=== PATIENT | female | born 1950 | race Caucasian/White ===

== ENCOUNTER 2019-11-03 20:44 | Inpatient (IN) | payer MEDICARE, OTHER ==
[~2019-11-03] VITALS: Ht 172.7 cm; Wt 92.4 kg
--- NOTE | 2019-11-03 20:57 | ED Abdominal Pain ---
General Chief Complaint: Abdominal/GI Problems Stated Complaint: VOMITING,ABD PAIN Nursing Triage Note: PT TO ROOM FS01 VIA W/C WITH C/O ABD PAIN N/V STARTING AT NOON. PT REPORTS PAIN IN UPPER ABD RADIATING TO BACK. Sepsis Screen: No Definite Risk History of Present Illness Date Seen by Provider: November 03, 2019 Time Seen by Provider: 20:57 Initial Comments 69-year-old female presents with upper abdominal pain more epigastric then right or left. She reports that radiates over into her upper back. This started around noon with some pain followed shortly by some nausea vomiting. She describes it as a crampy pain. Patient states she's had a normal bowel movement this morning. She denies any fevers, chills, cough, shortness of breath. Allergies and Home Medications Allergies Coded Allergies: acetaminophen (Unverified Allergy, Unknown, 11/03/19) meperidine (Unverified Allergy, Unknown, 11/03/19) oxycodone (Unverified Allergy, Unknown, 11/03/19) Patient Home Medication List Home Medication List Reviewed: Yes Review of Systems Review of Systems Constitutional: No chills, No fever Respiratory: Denies Cough, Denies Shortness of Air Cardiovascular: Denies Chest Pain, Denies Irregular Heart Rate Gastrointestinal: Abdominal Pain; Denies Constipated, Denies Diarrhea; Nausea, Vomiting Genitourinary: No Symptoms Reported Musculoskeletal: no symptoms reported Skin: no symptoms reported Psychiatric/Neurological: No Symptoms Reported Past Erwauyp-Qmmrzv-Gvdgeq Hx Patient Social History Recent Foreign Travel: No Contact w/Someone Who Travel: No Recent Infectious Disease Expo: No Physical Exam Vital Signs Vital Signs - First Documented 11/03/19 20:51 Temp 35.5 Pulse 79 Resp 21 B/P (MAP) 138/80 (99) O2 Delivery Room Air Capillary Refill : Less Than 3 Seconds Height/Weight/BMI Height: '" Weight: lbs. oz. 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, no motor/sensory deficits, alert, oriented x 3 Skin: normal color Focused Exam Lactate Level 11/03/19 21:00: Lactic Acid Level 3.62*H Lactic Acid Level Laboratory Tests Test 11/03/19 21:00 Lactic Acid Level 3.62 MMOL/L (0.50-2.00) *H Progress/Results/Core Measures Results/Orders Lab Results Laboratory Tests Test 11/03/19 20:55 11/03/19 21:00 Range/Units White Blood Count 16.2 H 4.3-11.0 10^3/uL Red Blood Count 5.28 4.35-5.85 10^6/uL Hemoglobin 14.5 11.5-16.0 G/DL Hematocrit 45 35-52 % Mean Corpuscular Volume 85 80-99 FL Mean Corpuscular Hemoglobin 27 25-34 PG Mean Corpuscular Hemoglobin Concent 32 32-36 G/DL Red Cell Distribution Width 15.1 H 10.0-14.5 % Platelet Count 402 H 130-400 10^3/uL Mean Platelet Volume 9.5 7.4-10.4 FL Neutrophils (%) (Auto) 83 H 42-75 % Lymphocytes (%) (Auto) 10 L 12-44 % Monocytes (%) (Auto) 6 0-12 % Eosinophils (%) (Auto) 1 0-10 % Basophils (%) (Auto) 0 0-10 % Neutrophils # (Auto) 13.4 H 1.8-7.8 X 10^3 Lymphocytes # (Auto) 1.7 1.0-4.0 X 10^3 Monocytes # (Auto) 0.9 0.0-1.0 X 10^3 Eosinophils # (Auto) 0.1 0.0-0.3 10^3/uL Basophils # (Auto) 0.0 0.0-0.1 10^3/uL Neutrophils % (Manual) 80 % Lymphocytes % (Manual) 11 % Monocytes % (Manual) 7 % Eosinophils % (Manual) 1 % Basophils % (Manual) 0 % Band Neutrophils 1 % Blood Morphology Comment NORMAL Sodium Level 140 135-145 MMOL/L Potassium Level 4.2 3.6-5.0 MMOL/L Chloride Level 96 L 98-107 MMOL/L Carbon Dioxide Level 25 21-32 MMOL/L Anion Gap 19 H 5-14 MMOL/L Blood Urea Nitrogen 16 7-18 MG/DL Creatinine 1.02 0.60-1.30 MG/DL Estimat Glomerular Filtration Rate 54 BUN/Creatinine Ratio 16 Glucose Level 126 H 70-105 MG/DL Calcium Level 10.1 8.5-10.1 MG/DL Corrected Calcium 9.9 8.5-10.1 MG/DL Total Bilirubin 0.6 0.1-1.0 MG/DL Aspartate Amino Transf (AST/SGOT) 33 5-34 U/L Alanine Aminotransferase (ALT/SGPT) 26 0-55 U/L Alkaline Phosphatase 102 40-136 U/L Total Protein 7.1 6.4-8.2 GM/DL Albumin 4.3 3.2-4.5 GM/DL Lipase 47 8-78 U/L Lactic Acid Level 3.62 *H 0.50-2.00 MMOL/L My Orders Orders - ISIDRO PATEL DO Acute Abd Series (11/03/19 20:57) Cbc With Automated Diff (11/03/19 20:57) Comprehensive Metabolic Panel (11/03/19 20:57) Lactic Acid Analyzer (11/03/19 20:57) Lipase (11/03/19 20:57) Ua Culture If Indicated (11/03/19 20:57) Ondansetron Injection (Zofran Injectio (11/03/19 21:00) Famotidine Injection (Pepcid Injection) (11/03/19 21:00) Ed Iv/Invasive Line Start (11/03/19 21:03) Ns Iv 1000 Ml (Sodium Chloride 0.9%) (11/03/19 21:03) Manual Differential (11/03/19 20:55) Ct Abdomen/Pelvis W (11/03/19 21:30) Iohexol Injection (Omnipaque 350 Mg/Ml 1 (11/03/19 21:45) Received Contrast (Hold Metformin- Contr (11/03/19 21:45) Ns (Ivpb) (Sodium Chloride 0.9% Ivpb Bag (11/03/19 21:45) Ng Tube Insert & Assessment (11/03/19 22:42) Medications Given in ED Current Medications Medications Dose Ordered Sig/Anabel Route Start Time Stop Time Status Last Admin Dose Admin Famotidine 20 mg ONCE ONCE IVP 11/03/19 21:00 11/03/19 21:01 DC 5/28/20 21:16 20 MG Iohexol 100 ml ONCE ONCE IV 11/03/19 21:45 11/03/19 21:46 DC 11/03/19 21:54 100 ML Ondansetron HCl 4 mg ONCE ONCE IVP 11/03/19 21:00 11/03/19 21:01 DC 11/03/19 21:16 4 MG Sodium Chloride 100 ml ONCE ONCE IV 11/03/19 21:45 11/03/19 21:46 DC 11/03/19 21:54 100 ML Vital Signs/I&O 11/03/19 20:51 Temp 35.5 Pulse 79 Resp 21 B/P (MAP) 138/80 (99) O2 Delivery Room Air Blood Pressure Mean: 99 Progress Progress Note : Time: 23:07 Progress Note Patient had a panic attack while NG tube was being placed. After NG tube tube was basically and she got extremely anxious and pulled the tube back out and then refuse further attempts to have placement. Patient continued to have a mild anxiety reaction. She was offered some medication but refused. Patient did slowly improve on her anxiety. Diagnostic Imaging Diagonstic Imaging: Xray Plain Films/CT/US/NM/MRI: abdomen Comments [facility] [place] NAME: SURINDER AGUDELO [facility] REC#: [id number] PT STATUS: REG ER : 1950 PHYSICIAN: ISIDRO PATEL DO ADMIT DATE: 11/03/19/ER FS Signed Date of Exam:11/03/19 ACUTE ABD SERIES INDICATION: Nausea and vomiting. Pain. EXAMINATION: Acute abdomen series. FINDINGS: The lungs are clear. The heart and vessels are normal. No failure, effusion or pneumothorax. The bowel gas pattern is nonspecific. No pathological air containing dilated loops of bowel. No air-fluid levels. No free intraperitoneal air. No abnormal fecal loading. IMPRESSION: No acute abnormality radiographically apparent. Departure Communication (Admissions) Time/Spoke to Admitting Phy: 22:[address] Lovell, consult the hospitalist in the a.m. We'll place an NG tube to low intermediate suction. Patient will be kept nothing by mouth, IV fluids. We'll order a small bowel follow-through for an a.m. Impression Primary Impression: Small bowel obstruction Disposition: ADMITTED INPATIENT Condition: Stable Admissions Decision to Admit Reason: Admit from ER (General) Decision to Admit/Date: November 03, 2019 Time/Decision to Admit Time: 22:48 Departure-Patient Inst. Referrals: ODETTE MELGOZA (PCP/Family) Primary Care Physician Patient Instructions: Small Bowel Obstruction ISIDRO PATEL DO November 03, 2019 20:57
[2019-11-03] MEDS ORDERED: FAMOTIDINE 20MG/2ML IV (PEPCID) IVP ONE (21:00)
[2019-11-03] MEDS ORDERED: ONDANSETRON 4 MG/2 ML (SDV) Z0FRAN IVP ONE (21:00)
[2019-11-03] MEDS ORDERED: NS IV 1000 ML 1,000 ML IV SCH (21:03)
[2019-11-03 21:14] LABS: BASOPHILS % (AUTO) 0 % (0-10); EOSINOPHILS % (AUTO) 1 % (0-10); HEMATOCRIT 45 % (35-52); HEMOGLOBIN 14.5 G/DL (11.5-16.0); MEAN CORPUSCULAR HEMOGLOBIN 27 PG (25-34); MEAN CORPUSCULAR HGB CONC 32 G/DL (32-36); MEAN CORPUSCULAR VOLUME 85 FL (80-99); MEAN PLATELET VOLUME 9.5 FL (7.4-10.4); MONOCYTES % (AUTO) 6 % (0-12); NEUTROPHILS % (AUTO) 83 % (42-75); PLATELET COUNT 402 10^3/uL (130-400); RED CELL DISTRIBUTION WIDTH 15.1 % (10.0-14.5); WHITE BLOOD COUNT 16.2 10^3/uL (4.3-11.0)
[2019-11-03 21:15] LABS: EOSINOPHILS # (AUTO) 0.1 10^3/uL (0.0-0.3); LYMPHOCYTES # (AUTO) 1.7 X 10^3 (1.0-4.0); LYMPHOCYTES % (AUTO) 10 % (12-44); MONOCYTES # (AUTO) 0.9 X 10^3 (0.0-1.0); NEUTROPHILS # (AUTO) 13.4 X 10^3 (1.8-7.8)
[2019-11-03 21:24] LABS: BAND NEUTROPHILS 1 %; BASOPHILS % (MANUAL) 0 %; EOSINOPHILS % (MANUAL) 1 %; LYMPHOCYTES % (MANUAL) 11 %; MONOCYTES % (MANUAL) 7 %; NEUTROPHILS % (MANUAL) 80 %; RBC MORPH NORMAL
[2019-11-03 21:25] LABS: ALBUMIN 4.3 GM/DL (3.2-4.5); BILIRUBIN,TOTAL 0.6 MG/DL (0.1-1.0); CALCIUM 10.1 MG/DL (8.5-10.1); CREATININE SERUM 1.02 MG/DL (0.60-1.30); POTASSIUM 4.2 MMOL/L (3.6-5.0); TOTAL PROTEIN 7.1 GM/DL (6.4-8.2)
--- NOTE | 2019-11-03 21:26 | Diagnostic Imaging Report ---
INDICATION: Nausea and vomiting. Pain. EXAMINATION: Acute abdomen series. FINDINGS: The lungs are clear. The heart and vessels are normal. No failure, effusion or pneumothorax. The bowel gas pattern is nonspecific. No pathological air containing dilated loops of bowel. No air-fluid levels. No free intraperitoneal air. No abnormal fecal loading. IMPRESSION: No acute abnormality radiographically apparent. Dictated by: Dictated on workstation # [id number]
[2019-11-03] MEDS ORDERED: HOLD METFORMIN - RECEIVED CONTRAST 20 ML VIAL IV SCH (21:45)
[2019-11-03] MEDS ORDERED: IOHEXOL 350 MG/ML 100 ML (OMNIPAQUE 350) VIAL IV ONE (21:45)
[2019-11-03] MEDS ORDERED: NS 100 ML (IVPB) BAG IV ONE (21:45)
--- OUTSIDE RECORDS SUMMARY | 2019-11-03 22:07 | XMS REPORT | Continuity of Care Document ---
Demographics x Preferred Language Unknown Marital Status Unknown Anglican Affiliation Unknown Race Unknown Ethnic Group Unknown Author Organization Unknown Address Unknown Phone Unavailable Allergies There is no data. Medications There is no data. Problems There is no data. Procedures There is no data. Results Test Result Range TSH w/ FREE T4 - 09/29/18 08:43 TSH 1.58 mIU/L 0.40-4.50 T4, FREE 1.4 ng/dL 0.8-1.8 LIPID PANEL - 09/29/18 08:43 CHOLESTEROL, TOTAL 138 mg/dL <200 HDL CHOLESTEROL 55 mg/dL >50 TRIGLYCERIDES 120 mg/dL <150 LDL-CHOLESTEROL 62 mg/dL (calc) NRG CHOL/HDLC RATIO 2.5 (calc) <5.0 NON HDL CHOLESTEROL 83 mg/dL (calc) <130 CMP - 09/29/18 08:43 GLUCOSE 85 mg/dL 65-99 UREA NITROGEN (BUN) 16 mg/dL 7-25 CREATININE 0.86 mg/dL 0.50-0.99 eGFR NON-AFR. ITALIAN 70 mL/min/1.73m2 > OR = 60 eGFR 82 mL/min/1.73m2 > OR = 60 BUN/CREATININE RATIO NOT APPLICABLE (calc) 6-22 SODIUM 142 mmol/L 135-146 POTASSIUM 5.7 mmol/L 3.5-5.3 CHLORIDE 107 mmol/L 98-110 CARBON DIOXIDE 28 mmol/L 20-32 CALCIUM 9.3 mg/dL 8.6-10.4 PROTEIN, TOTAL 6.1 g/dL 6.1-8.1 ALBUMIN 4.0 g/dL 3.6-5.1 GLOBULIN 2.1 g/dL (calc) 1.9-3.7 ALBUMIN/GLOBULIN RATIO 1.9 (calc) 1.0-2. 5 BILIRUBIN, TOTAL 0.5 mg/dL 0.2-1.2 ALKALINE PHOSPHATASE 77 U/L 33-130 AST 29 U/L 10-35 ALT 24 U/L 6-29 CBC - 09/29/18 08:43 WHITE BLOOD CELL COUNT 5.9 Thousand/uL 3 .8-10.8 RED BLOOD CELL COUNT 4.92 Million/uL 3.8 0-5.10 HEMOGLOBIN 13.9 g/dL 11.7-15.5 HEMATOCRIT 43.4 % 35.0-45.0 MCV 88.2 fL 80.0-100.0 MCH 28.3 pg 27.0-33.0 MCHC 32.0 g/dL 32.0-36.0 RDW 15.1 % 11.0-15.0 PLATELET COUNT 345 Thousand/uL 140-400 MPV 9.7 fL 7.5-12.5 ABSOLUTE NEUTROPHILS 3835 cells/uL 1500- 7800 ABSOLUTE LYMPHOCYTES 1410 cells/uL 850-3 900 ABSOLUTE MONOCYTES 443 cells/uL 200-950 ABSOLUTE EOSINOPHILS 142 cells/uL 15-500 ABSOLUTE BASOPHILS 71 cells/uL 0-200 NEUTROPHILS 65 % NRG LYMPHOCYTES 23.9 % NRG MONOCYTES 7.5 % NRG EOSINOPHILS 2.4 % NRG BASOPHILS 1.2 % NRG CBC - 11/08/18 09:42 WHITE BLOOD CELL COUNT 7.2 Thousand/uL 3 .8-10.8 RED BLOOD CELL COUNT 5.01 Million/uL 3.8 0-5.10 HEMOGLOBIN 13.6 g/dL 11.7-15.5 HEMATOCRIT 43.7 % 35.0-45.0 MCV 87.2 fL 80.0-100.0 MCH 27.1 pg 27.0-33.0 MCHC 31.1 g/dL 32.0-36.0 RDW 14.1 % 11.0-15.0 PLATELET COUNT 349 Thousand/uL 140-400 MPV 9.6 fL 7.5-12.5 ABSOLUTE NEUTROPHILS 4572 cells/uL 1500- 7800 ABSOLUTE LYMPHOCYTES 1663 cells/uL 850-3 900 ABSOLUTE MONOCYTES 576 cells/uL 200-950 ABSOLUTE EOSINOPHILS 310 cells/uL 15-500 ABSOLUTE BASOPHILS 79 cells/uL 0-200 NEUTROPHILS 63.5 % NRG LYMPHOCYTES 23.1 % NRG MONOCYTES 8.0 % NRG EOSINOPHILS 4.3 % NRG BASOPHILS 1.1 % NRG LIPID PANEL - 10/03/19 10:26 CHOLESTEROL, TOTAL 147 mg/dL <200 HDL CHOLESTEROL 54 mg/dL > OR = 50 TRIGLYCERIDES 151 mg/dL <150 LDL-CHOLESTEROL 70 mg/dL (calc) NRG CHOL/HDLC RATIO 2.7 (calc) <5.0 NON HDL CHOLESTEROL 93 mg/dL (calc) <130 CBC - 10/03/19 10:26 WHITE BLOOD CELL COUNT 5.9 Thousand/uL 3 .8-10.8 RED BLOOD CELL COUNT 4.90 Million/uL 3.8 0-5.10 HEMOGLOBIN 13.4 g/dL 11.7-15.5 HEMATOCRIT 42.1 % 35.0-45.0 MCV 85.9 fL 80.0-100.0 MCH 27.3 pg 27.0-33.0 MCHC 31.8 g/dL 32.0-36.0 RDW 14.9 % 11.0-15.0 PLATELET COUNT 360 Thousand/uL 140-400 MPV 9.5 fL 7.5-12.5 ABSOLUTE NEUTROPHILS 3947 cells/uL 1500- 7800 ABSOLUTE LYMPHOCYTES 1322 cells/uL 850-3 900 ABSOLUTE MONOCYTES 472 cells/uL 200-950 ABSOLUTE EOSINOPHILS 118 cells/uL 15-500 ABSOLUTE BASOPHILS 41 cells/uL 0-200 NEUTROPHILS 66.9 % NRG LYMPHOCYTES 22.4 % NRG MONOCYTES 8.0 % NRG EOSINOPHILS 2.0 % NRG BASOPHILS 0.7 % NRG Encounters ACCT No. Visit Date/Time Discharge Status Pt. Type Provider Facility Loc./Unit Complaint [id number] 11/08/2018 09:20:00 11/08/2018 23:59: 59 [facility] [id number] 10/03/2019 10:20:00 Document Registration [id number] 11/08/2018 09:20:00 Document Registration [id number] 09/29/2018 09:00:00 Document Registration
--- NOTE | 2019-11-03 23:00 | NUR ---
PT REFUSED NG TUBE. PLACEMENT WAS BEGAN AND TUBE WAS APPROX HALF WAY INSERTED AND PT PULL THE ARM OF RN AND THE PROCEDED TO PULL THE NG TUBE BACK OUT. PT STATES "YOU ARE NOT PUTTING THAT THING BACK IN ME." PROVIDER NOTIFIED.
--- OUTSIDE RECORDS SUMMARY | 2019-11-03 23:54 | XMS REPORT | Continuity of Care Document ---
Demographics x Preferred Language Unknown Marital Status Unknown Tenriism Affiliation Unknown Race Unknown Ethnic Group Unknown [...] 7-25 CREATININE 0.86 mg/dL 0.50-0.99 eGFR NON-AFR. GAMBIAN 70 mL/min/1.73m2 > OR = 60 eGFR [...] Status Pt. Type Provider Facility Loc./Unit Complaint [id number] 11/08/2018 09:20:00 11/08/2018 23:59: 59 [facility] [id number] 10/03/2019 10:20:00 Document Registration [id number] 11/08/2018 09:20:00 Document Registration [id number] 09/29/2018 09:00:00 Document Registration
[2019-11-04] VITALS (8 sets, daily range): BP systolic 92–133; BP diastolic 54–76
[2019-11-04] MEDS ORDERED: NS IV 1000 ML 1,000 ML ONE (00:07)
[2019-11-04] MEDS: NS IV 1000 ML 1,000 ML IV SCH ×3 (00:45→22:31)
--- NOTE | 2019-11-04 00:45 | NUR ---
SURINDER AGUDELO admitted to room 415-1, with an admitting diagnosis of small bowel obstruction, on 11/03/19 from [place] via stretcher, accompanied by EMS. SURINDER AGUDELO introduced to surroundings, call light, bed controls, phone, TV, temperature control, lights, meal times, smoking policy, visitor policy, side rail policy, bathrooms and showers. Patient Rights given to patient in the handbook. SURINDER AGUDELO verbalizes understanding that [facility] is not responsible for the loss or damage to any personal effects or valuables that are kept in the patients posession during their hospitalization.
[2019-11-04 01:10] LABS: BILIRUBIN,URINE NEGATIVE (NEGATIVE); CLARITY,URINE CLEAR; COLOR,URINE YELLOW; GLUCOSE, URINE (UA) NEGATIVE (NEGATIVE); KETONES,URINE NEGATIVE (NEGATIVE); LEUKOCYTE ESTERASE ,URINE NEGATIVE (NEGATIVE); NITRITE,URINE NEGATIVE (NEGATIVE); PH,URINE 8.5 (5-9); PROTEIN,URINE NEGATIVE (NEGATIVE)
[2019-11-04 01:22] LABS: BACTERIA,URINE NEGATIVE /HPF
--- NOTE | 2019-11-04 02:00 | NUR ---
Head Refrigerating Engineer (ANYA Sutherland) here to take pt's billfold and checkbook to [facility] per patient request.
[2019-11-04] MEDS ORDERED: ONDANSETRON 4 MG/2 ML (SDV) Z0FRAN IVP PRN (05:45)
[2019-11-04 06:26] LABS: BASOPHILS % (AUTO) 0 % (0-10); EOSINOPHILS # (AUTO) 0.1 10^3/uL (0.0-0.3); EOSINOPHILS % (AUTO) 1 % (0-10); HEMATOCRIT 38 % (35-52); LYMPHOCYTES # (AUTO) 1.7 X 10^3 (1.0-4.0); LYMPHOCYTES % (AUTO) 18 % (12-44); MEAN CORPUSCULAR HEMOGLOBIN 27 PG (25-34); MEAN CORPUSCULAR HGB CONC 32 G/DL (32-36); MEAN CORPUSCULAR VOLUME 86 FL (80-99); MONOCYTES # (AUTO) 0.9 X 10^3 (0.0-1.0); MONOCYTES % (AUTO) 9 % (0-12); NEUTROPHILS # (AUTO) 6.9 X 10^3 (1.8-7.8); NEUTROPHILS % (AUTO) 72 % (42-75); PLATELET COUNT 333 10^3/uL (130-400); RED CELL DISTRIBUTION WIDTH 15.6 % (10.0-14.5); WHITE BLOOD COUNT 9.6 10^3/uL (4.3-11.0)
[2019-11-04 06:50] LABS: ALBUMIN 3.4 GM/DL (3.2-4.5)
[2019-11-04 06:51] LABS: CHLORIDE 106 MMOL/L (98-107); POTASSIUM 3.7 MMOL/L (3.6-5.0); SODIUM 139 MMOL/L (135-145)
[2019-11-04 06:52] LABS: CALCIUM 8.3 MG/DL (8.5-10.1)
[2019-11-04 06:53] LABS: GLUCOSE 89 MG/DL (70-105); TOTAL PROTEIN 5.8 GM/DL (6.4-8.2)
[2019-11-04 06:54] LABS: CARBON DIOXIDE 24 MMOL/L (21-32)
[2019-11-04 06:55] LABS: BILIRUBIN,TOTAL 0.5 MG/DL (0.1-1.0)
[2019-11-04 06:56] LABS: ALKALINE PHOSPHATASE 70 U/L (40-136)
[2019-11-04 06:57] LABS: CREATININE SERUM 0.91 MG/DL (0.60-1.30); GFR ESTIMATED > 60
[2019-11-04 06:58] LABS: BUN/CREATININE RATIO 15
[2019-11-04 07:00] LABS: ALANINE AMINOTRANSFERASE 23 U/L (0-55)
--- NOTE | 2019-11-04 07:20 | Diagnostic Imaging Report ---
PROCEDURE: CT abdomen and pelvis with contrast. TECHNIQUE: Multiple contiguous axial images were obtained through the abdomen and pelvis after administration of intravenous contrast. Auto Exposure Controls were utilized during the CT exam to meet ALARA standards for radiation dose reduction. INDICATION: Nausea, vomiting and upper abdominal pain. COMPARISON: None available. FINDINGS: Lung bases are clear and the visualized heart is normal in size. There is a subcentimeter focus of low-attenuation in the right hepatic lobe superiorly (image 11 series 2). The liver is otherwise normal. The gallbladder, spleen, pancreas and adrenal glands are unremarkable. The kidneys are symmetric in size and demonstrate normal enhancement, without evidence of renal calculus, hydronephrosis, or suspicious renal mass. There is no abnormality in the visualized ureters. There is a small hiatal hernia. Mildly dilated fluid-filled loops of small bowel are demonstrated in the mid and lower abdomen. There is an apparent transition point in the superior pelvis anteriorly, distal to which loops of small bowel are decompressed. There is fecalized small bowel contents at this area of transition (images 54-62 series 2), distal to which there is a focally thickened loop of small bowel. No bowel wall thickening is appreciated. The appendix is normal. There is no pneumoperitoneum, abdominal free fluid, or loculated collection. No lymphadenopathy is appreciated. The bladder is normal. The uterus is surgically absent. There is no adnexal mass or pelvic free fluid. The aorta is nonaneurysmal. There is no evidence of venous thrombosis. Incidental note is made of variant anatomy involving the venous structures, with double IVC and azygous continuation. The abdominal wall is unremarkable. The patient is status post L4-S1 fusion. There is degenerative anterolisthesis of L3 on L4. No acute osseous abnormality is appreciated. IMPRESSION: Mildly dilated loops of small bowel, with transition point in the anterior pelvis superiorly where fecalized small bowel contents and focal wall thickening in adjacent small bowel loop are demonstrated. Findings are felt to reflect early/partial small bowel obstruction. No pneumoperitoneum or abdominal free fluid. Subcentimeter focus of low-attenuation is noted in the right hepatic lobe near the dome. This may represent a simple cyst, however, is indeterminate based on the current exam. If the patient is at low-risk for hepatic malignancy, no additional imaging follow-up is required. If the patient is at high-risk for hepatic malignancy, follow-up MRI recommended in 3-6 months, per [employer] Incidental Findings Committee white paper management recommendations (JACR 2017;14:[id number]). Findings are in agreement with initial teleradiology report. Dictated by: Dictated on workstation # [id number]
--- NOTE | 2019-11-04 07:25 | NUR ---
Dr. Amador notified of consult by ANYA Culp.
[2019-11-04] MEDS ORDERED: DIATRIZOATE MEGLUM/SODIUM 37% 120 ML (GASTROGRAFIN) PO ONE (10:15)
[2019-11-04] MEDS ORDERED: LISI-552 PO (10:56)
[2019-11-04] MEDS ORDERED: GLYCOPYRROLATE 1MG PO (10:56)
[2019-11-04] MEDS ORDERED: PANT40TA3 PO (10:56)
[2019-11-04] MEDS ORDERED: ASPI-983 PO (10:56)
[2019-11-04] MEDS ORDERED: LEVO150T PO ×2 (10:56)
[2019-11-04] MEDS ORDERED: ATOR80TA76 PO (10:56)
[2019-11-04] MEDS ORDERED: DICL75TA2 PO (10:56)
[2019-11-04] MEDS ORDERED: DILT-27 PO (10:56)
[2019-11-04] MEDS ORDERED: MTP100TCR PO (10:56)
[2019-11-04] MEDS ORDERED: DULO20CA19 PO (10:56)
[2019-11-04] MEDS ORDERED: TRAM50TA3 PO (10:56)
[2019-11-04] MEDS ORDERED: CHLO25TA22 PO (10:56)
[2019-11-04] MEDS ORDERED: FOLI1TAB6 PO (10:58)
[2019-11-04] MEDS ORDERED: FLUT9.9S NS (11:00)
[2019-11-04] MEDS ORDERED: NITR0.4T39 SL (11:01)
[2019-11-04] MEDS ORDERED: ABAT250V2 IV (11:22)
--- NOTE | 2019-11-04 11:37 | Consultation - Hospitalist ---
HPI History of Present Illness: HPI/Chief Complaint Marta Hernandez is a 69-year-old female with past medical history of hypertension, hyperlipidemia, rheumatoid arthritis on immunosuppression, hypothyroidism, depression, who presented with abdominal pain, nausea, and vomiting. She reports that her symptoms started yesterday. She reports having a bowel mo vement yesterday. She is passing gas. She has no history of small bowel obstruction. She had a hysterectomy about 30 years ago. She denies any fevers or chills. She denies any chest pain or shortness of breath. She denies any cough. She denies any diarrhea. She follows with a roll press operator in [place] for her rheumatoid arthritis. She is getting monthly Orencia injections. Source: patient Exam Limitations: no limitations Date Seen 11/04/19 Attending Physician Germain Lovell Rhonda L Arnp Referring Physician Date of Admission November 03, 2019 at 22:45 Home Medications & Allergies Home Medications Reviewed patient Home Medication Reconciliation performed by pharmacy medication reconciliations robotic maintenance technician and/or nursing. Patients Allergies have been reviewed. Allergies Allergies Coded Allergies acetaminophen (Unverified Allergy, Unknown, 11/03/19) meperidine (Unverified Allergy, Unknown, 11/03/19) oxycodone (Unverified Allergy, Unknown, 11/03/19) Past Cshqrjq-Rvnbmp-Rfadoh Hx Past Med/Social Hx: Reviewed Nursing Past Med/Soc Hx Patient Social History Alcohol Use: Rarely Uses Recreational Drug Use: No Smoking Status: Never a Smoker 2nd Hand Smoke Exposure: No Recent Foreign Travel: No Contact w/other who traveled: No Recent Hopitalizations: No Recent Infectious Disease Expo: No Immunizations Up To Date Date of Pneumonia Vaccine: Feb 07, 2019 Seasonal Allergies Seasonal Allergies: Yes Past Medical History Surgeries: Appendectomy, Hysterectomy, Orthopedic, Tonsillectomy, Tubal Ligation Cardiac: Coronary Artery Disease, Heart Attack, High Cholesterol, Hypertension Musculoskeletal: Rheumatoid Arthritis Endocrine: Hypothyroidsim Cancer: Thyroid Did You Recieve Any Treatments: Yes What Type of Treatment Did You: Radiation, Surgical Intervention History of Blood Disorders: No Family History Arthritis 19 FATHER 19 MOTHER Cataracts 19 FATHER 19 MOTHER Deafness or hearing loss 19 FATHER Diabetes mellitus Maternal Grandfather FH: bowel obstruction 19 MOTHER G8 SISTER FH: breast cancer Paternal Grandmother FH: macular degeneration Maternal Grandmother FH: ovarian cancer 19 MOTHER FH: stroke Paternal Grandmother FHx: heart disease 19 FATHER 19 MOTHER Review of Systems Constitutional: no symptoms reported EENTM: no symptoms reported Respiratory: no symptoms reported Cardiovascular: no symptoms reported Gastrointestinal: abdominal pain, nausea, vomiting Genitourinary: no symptoms reported Musculoskeletal: no symptoms reported Skin: no symptoms reported Psychiatric/Neurological: No Symptoms Reported Physical Exam Physical Exam Vital Signs Vital Signs - First Documented 11/03/19 11/04/19 20:51 00:11 Temp 35.5 Pulse 79 Resp 21 B/P (MAP) 138/80 (99) Pulse Ox 100 O2 Delivery Room Air Capillary Refill : Less Than 3 Seconds Height, Weight, BMI Height: '" Weight: lbs. oz. kg; 30.98 BMI Method: General Appearance: No Apparent Distress, Obese HEENT: PERRL/EOMI, Pharynx Normal Neck: Normal Inspection, Supple Respiratory: Lungs Clear, Normal Breath Sounds, No Respiratory Distress Cardiovascular: Regular Rate, Rhythm, No Edema, No Murmur Gastrointestinal: Normal Bowel Sounds, Soft, Tenderness Extremity: Normal Inspection, Non Tender, No Pedal Edema Neurologic/Psychiatric: Alert, Oriented x3, No Motor/Sensory Deficits, Normal Mood/Affect Skin: Normal Color, Warm/Dry Results Results/Procedures Labs Laboratory Tests 11/03/19 20:55 11/04/19 05:41 Patient resulted labs reviewed. Imaging: Reviewed Imaging Report Assessment/Plan Assessment and Plan Assess & Plan/Chief Complaint Partial small bowel obstruction CT abdomen revealed small bowel obstruction General Surgery primary NG tube attempted but unsuccessful Nothing by mouth IV fluids running Undergoing small bowel follow-through today Pain regimen and antiemetics ordered Hypertension Hyperlipidemia Rheumatoid arthritis Depression Hold home meds while receiving nothing by mouth DVT prophylaxis: Lovenox Diagnosis/Problems Diagnosis/Problems (1) Small bowel obstruction Status: Acute Clinical Quality Measures DVT/VTE Risk/Contraindication: Risk Factor Score Per Nursin RFS Level Per Nursing on Admit: 4+=Very High SERJIO MOHAN MD November 04, 2019 11:37
[2019-11-04] MEDS ORDERED: ENOXAPARIN 40 MG/0.4 ML (LOVENOX) SYR SC SCH (11:45)
--- NOTE | 2019-11-04 12:46 | NUR ---
SPOKE WITH THE PT (SHE HAD A MED LIST ON HER CHART) AND WENT THRU THE EXT MED HISTORY TO COMPLETE THE MED REC PATIENTS MED LIST IS NO UP TO DATE AND THERE ARE MEDS THE PT IS NOW ON THAT ARE NOT LISTED (THE LIST SAYS IT WAS LAST UPDATED 02-23-2019) BUT THE EXT MED HISTORY HAS ALL HER MEDS LISTED SOME OF THE PTS MEDS SEEM TO BE PAST DUE ( CHLORTHALIDONE 25MG, GLYCOPYRROLATE 1MG, DICLOFENAC 75MG) BUT THE PT SAYS SHE SWITCHED MAILORDER COMPANIES AT THE BEGINNING OF THE YEAR AND THEY SENT HER ALL NEW ORDERS EVEN THOUGH SHE WAS NOT OUT OF THE MEDS SHE HAD. WHEN LOOKING AT THE EXT MED HISTORY YOU CAN SEE FILL DATES THAT WERE NOT DUE BUT SENT TO HER ANYWAY LEVOTHYROXINE 150MCG: PT TAKES 1 TAB EVERYDAY AND ON THURSDAY TAKES AN ADDITIONAL TAB TO EQUAL 225MCG (ONLY ON THURSDAY) OTC MEDS: ASPIRIN 81 MTV FLONASE
--- NOTE | 2019-11-04 12:55 | History & Physical-Surgical ---
History of Present Illness History of Present Illness Reason for visit/HPI CC: small bowel obstruction. Patient is a 69 year old female who around noon yesterday began feeling sick. Then began having nausea and several episodes of nausea. Discomfort in the upper abdomen. This radiated into her back. She did have a bowel movement yes terday as well. Nothing really seemed to make her symptoms better or worse. She continued to feel worse and went to the emergency dept. Patient had a ct scan that is consistent with small bowel obstruction. Today patient is not having much abdominal discomfort. She is passing flatus today she states. Denies n/v fever sweats chills shortness of breath or chest pain. On initial imaging of small bowel follow through contrast is slow to move and has dilated small bowel. Date of Admission November 03, 2019 at 22:45 Date Seen by a Provider: November 04, 2019 Time Seen by a Provider: 09:35 I consulted on this patient on 11/04/19 09:48 Attending Physician Jewel Lovell DO Admitting Physician Patrica Milian Consult Allergies and Home Medications Allergies Coded Allergies: acetaminophen (Unverified Allergy, Unknown, 11/03/19) meperidine (Unverified Allergy, Unknown, 11/03/19) oxycodone (Unverified Allergy, Unknown, 11/03/19) Home Medications Abatacept/Maltose 250 Mg Vial, Unknown Dose IV MONTHLY, (Reported) Aspirin 81 Mg Tablet.dr, 81 MG PO HS, (Reported) Atorvastatin Calcium 80 Mg Tablet, 80 MG PO HS, (Reported) Chlorthalidone 25 Mg Tablet, 12.5 MG PO DAILY, (Reported) TAKES OF A 25MG TAB Diclofenac Sodium 75 Mg Tablet.dr, 75 MG PO BID, (Reported) Diltiazem HCl 120 Mg Cap.er.24h, 120 MG PO DAILY, (Reported) Duloxetine HCl 20 Mg Capsule.dr, 20 MG PO DAILY, (Reported) Fluticasone Propionate 9.9 Ml [place].susp, 1 SPRAY NS DAILY, (Reported) Levothyroxine Sodium 150 Mcg Tablet, 150 MG PO DAILY, (Reported) TAKES 150MCG DAILY AND ON SUNDAYS TAKES AN ADDITIONAL TAB Levothyroxine Sodium 150 Mcg Tablet, 75 MCG PO THURSDAY, (Reported) TAKES 150MCG DAILY AND ON SUNDAYS TAKES AN ADDITIONAL TAB Lisinopril 20 Mg Tablet, 20 MG PO DAILY, (Reported) Metoprolol Succinate 100 Mg Tab.er.24h, 100 MG PO HS, (Reported) Multivitamin/Iron/Folic Acid 1 Each Tablet, 1 EACH PO DAILY, (Reported) Nitroglycerin 0.4 Mg Tab.subl, 0.4 MG SL UD PRN for CHEST PAIN, (Reported) Pantoprazole Sodium 40 Mg Tablet.dr, 40 MG PO DAILY, (Reported) Tramadol HCl 50 Mg Tablet, 50 MG PO Q8H PRN for PAIN-MODERATE (5-7), (Reported) [Glycopyrrolate 1MG] 1 TAB, 1 MG PO DAILY, (Reported) Patient Home Medication List Home Medication List Reviewed: Yes Past Ipqmpir-Biouns-Pvatoq Hx Patient Social History Alcohol Use: Rarely Uses Recreational Drug Use: No Smoking Status: Never a Smoker 2nd Hand Smoke Exposure: No Recent Foreign Travel: No Contact w/Someone Who Travel: No Recent Infectious Disease Expo: No Recent Hopitalizations: No Immunizations Up To Date Date of Pneumonia Vaccine: Feb 07, 2019 Seasonal Allergies Seasonal Allergies: Yes Surgeries History of Surgeries: Yes (BILAT KNEE REPLACEMENT, RIGHT SHOULDER, BILAT CARPAL TUNNEL, THYROIDECTOMY,) Surgeries: Appendectomy, Hysterectomy, Orthopedic, Tonsillectomy, Tubal Ligation Respiratory History of Respiratory Disorde: No Cardiovascular History of Cardiac Disorders: Yes Cardiac Disorders: Coronary Artery Disease, Heart Attack, High Cholesterol, H ypertension Neurological History of Neurological Disord: No Gastrointestinal History of Gastrointestinal Di: No Musculoskeletal History of Musculoskeletal Dis: Yes (SPINAL FUSION) Musculoskeletal Disorders: Rheumatoid Arthritis Endocrine History of Endocrine Disorders: Yes Endocrine Disorders: Hypothyroidsim HEENT History of HEENT Disorders: No Cancer History of Cancer: Yes Cancer: Thyroid Psychosocial History of Psychiatric Problem: No Integumentary History of Skin or Integumenta: No Blood Transfusions History of Blood Disorders: No Family Medical History Significant Family History: No Pertinent Family Hx Family Medial History: Arthritis 19 FATHER 19 MOTHER Cataracts 19 FATHER 19 MOTHER Deafness or hearing loss 19 FATHER Diabetes mellitus Maternal Grandfather FH: bowel obstruction 19 MOTHER G8 SISTER FH: breast cancer Paternal Grandmother FH: macular degeneration Maternal Grandmother FH: ovarian cancer 19 MOTHER FH: stroke Paternal Grandmother FHx: heart disease 19 FATHER 19 MOTHER Review of Systems Constitutional: no symptoms reported EENTM: no symptoms reported Respiratory: no symptoms reported Cardiovascular: No chest pain, No edema, No palpitations Gastrointestinal: abdominal pain, nausea, vomiting Musculoskeletal: back pain Skin: no symptoms reported; No change in color Psychiatric/Neurological: No Symptoms Reported Physical Exam Vital Signs Vital Signs - First Documented 11/03/19 11/04/19 20:51 00:11 Temp 35.5 Pulse 79 Resp 21 B/P (MAP) 138/80 (99) Pulse Ox 100 O2 Delivery Room Air Capillary Refill : Less Than 3 Seconds Height, Weight, BMI Height: '" Weight: lbs. oz. kg; 30.98 BMI Method: General Appearance: No Apparent Distress, WD/WN HEENT: PERRL/EOMI, Normal ENT Inspection Neck: Normal Inspection, Non Tender Respiratory: Chest Non Tender, No Accessory Muscle Use, No Respiratory Distress Cardiovascular: Regular Rate, Rhythm Gastrointestinal: Soft, Distended (minimal); No Tenderness Rectal: Deferred Back: No CVA Tenderness Extremity: Normal Inspection, Non Tender Neurologic/Psychiatric: Alert, Oriented x3, No Motor/Sensory Deficits, Normal Mood/Affect, pick remover II-XII Norm as Tested Skin: Normal Color, Warm/Dry Lymphatic: No Adenopathy Data Review Labs Laboratory Tests 11/03/19 20:55: White Blood Count 16.2H, Red Blood Count 5.28, Hemoglobin 14.5, Hematocrit 45, Mean Corpuscular Volume 85, Mean Corpuscular Hemoglobin 27, Mean Corpuscular Hemoglobin Concent 32, Red Cell Distribution Width 15.1H, Platelet Count 402H, Mean Platelet Volume 9.5, Neutrophils (%) (Auto) 83H, Lymphocytes (%) (Auto) 10L , Monocytes (%) (Auto) 6, Eosinophils (%) (Auto) 1, Basophils (%) (Auto) 0, Neutrophils # (Auto) 13.4H, Lymphocytes # (Auto) 1.7, Monocytes # (Auto) 0.9, Eosinophils # (Auto) 0.1, Basophils # (Auto) 0.0, Neutrophils % (Manual) 80, Lymphocytes % (Manual) 11, Monocytes % (Manual) 7, Eosinophils % (Manual) 1, Basophils % (Manual) 0, Band Neutrophils 1, Blood Morphology Comment NORMAL, Sodium Level 140, Potassium Level 4.2, Chloride Level 96L, Carbon Dioxide Level 25, Anion Gap 19H, Blood Urea Nitrogen 16, Creatinine 1.02, Estimat Glomerular Filtration Rate 54, BUN/Creatinine Ratio 16, Glucose Level 126H, Calcium Level 10.1, Corrected Calcium 9.9, Total Bilirubin 0.6, Aspartate Amino Transf (AST/SGOT) 33, Alanine Aminotransferase (ALT/SGPT) 26, Alkaline Phosphatase 102, Total Protein 7.1, Albumin 4.3, Lipase 47 11/03/19 21:00: Lactic Acid Level 3.62*H 11/03/19 23:05: Lactic Acid Level 2.40*H 11/04/19 01:00: Urine Color YELLOW, Urine Clarity CLEAR, Urine pH 8.5, Urine Specific [place] 1. 010L, Urine Protein NEGATIVE, Urine Glucose (UA) NEGATIVE, Urine Ketones NEGATIVE, Urine Nitrite NEGATIVE, Urine Bilirubin NEGATIVE, Urine Urobilinogen 0.2, Urine Leukocyte Esterase NEGATIVE, Urine RBC (Auto) NEGATIVE, Urine RBC NONE, Urine WBC NONE, Urine Squamous Epithelial Cells 2-5, Urine Crystals NONE, Urine Bacteria NEGATIVE, Urine Casts NONE, Urine Mucus NEGATIVE, Urine Culture Indicated NO 11/04/19 05:41: White Blood Count 9.6, Red Blood Count 4.42, Hemoglobin 12.0, Hematocrit 38, Mean Corpuscular Volume 86, Mean Corpuscular Hemoglobin 27, Mean Corpuscular Hemoglobin Concent 32, Red Cell Distribution Width 15.6H, Platelet Count 333, Mean Platelet Volume 10.0, Neutrophils (%) (Auto) 72, Lymphocytes (%) (Auto) 18, Monocytes (%) (Auto) 9, Eosinophils (%) (Auto) 1, Basophils (%) (Auto) 0, Neutrophils # (Auto) 6.9, Lymphocytes # (Auto) 1.7, Monocytes # (Auto) 0.9, Eosinophils # (Auto) 0.1, Basophils # (Auto) 0.0, Sodium Level 139, Potassium Level 3.7, Chloride Level 106, Carbon Dioxide Level 24, Anion Gap 9, Blood Urea Nitrogen 14, Creatinine 0.91, Estimat Glomerular Filtration Rate > 60, BUN/Creatinine Ratio 15, Glucose Level 89, Calcium Level 8.3L, Corrected Calcium 8.8, Total Bilirubin 0.5, Aspartate Amino Transf (AST/SGOT) 27, Alanine Aminotransferase (ALT/SGPT) 23, Alkaline Phosphatase 70, Total Protein 5.8L, Albumin 3.4 Assessment/Plan Assessment/Plan Admission Vern camejo bowel obstruction nausea vomiting Admission Status: Inpatient Order (span 2 midnights) Reason for Inpatient Admission: Need for monitoring and further imaging for condition that may need surgical intervention if it does not resolve with conservative measures. Assessment/Plan small bowel obstruction nausea vomiting patient was not able to get ng tube placed last night and refuses to have one at this point she is undergoing small bowel follow through she is passing flatus but as of right now the contrast is not moving through early in the study NPO IV hydration await small bowel follow through to complete conservative measures for now, patient understands possibility of needing luis daniel gical intervention. Clinical Quality Measures DVT/VTE Risk/Contraindication: Risk Factor Score Per Nursin RFS Level Per Nursing on Admit: 4+=Very High JEWEL LOVELL DO November 04, 2019 12:54
--- NOTE | 2019-11-04 14:00 | NUR ---
took over care of pt and received report from Mildred lobo
--- NOTE | 2019-11-04 14:20 | Diagnostic Imaging Report ---
INDICATION: Small bowel obstruction. The patient was given a 50-50 mixture of Gastrografin contrast and water and serial radiographs of the abdomen were obtained. A district scout executive radiograph demonstrates a mildly prominent air-filled small bowel loop in the central abdomen. There is gas within nondilated colonic bowel loops. Postcontrast images demonstrate contrast within the stomach with some delay in the emptying of contrast from the stomach. Later images demonstrate some contrast filled and slightly dilated central small bowel loops. Contrast is seen throughout the entire colon at the 5 hour film. No mass lesion is identified. IMPRESSION: No evidence of complete small bowel obstruction. Dictated by: Dictated on workstation # [id number]
[2019-11-05] VITALS: BP 132/71
[2019-11-05 04:00] VITALS: BP 120/63
[2019-11-05] MEDS: NS IV 1000 ML 1,000 ML IV SCH (06:37)
[2019-11-05 07:53] VITALS: BP 121/78
--- NOTE | 2019-11-05 09:24 | Progress Note - Hospitalist ---
Subjective HPI/CC On Admission Date Seen by Provider: November 05, 2019 Time Seen by Provider: 08:35 Marta Hernandez is a 69-year-old female with past medical history of hypertension, hyperlipidemia, rheumatoid arthritis on immunosuppression, hypothyroidism, depression, who presented with abdominal pain, nausea, and vomiting. She reports that her symptoms started yesterday. She reports having a bowel movement yesterday. She is passing gas. She has no history of small bowel obstruction. She had a hysterectomy about 30 years ago. She denies any fevers or chills. She denies any chest pain or shortness of breath. She denies any cough. She denies any diarrhea. She follows with a rehab liaison in [place] for her rheumatoid arthritis. She is getting monthly Orencia injections. Subjective/Events-last exam she continues to have abdominal discomfort. She denies any nausea or vomiting. She has been having bowel movements. She denies any fevers or chills. She denies any chest pain or shortness of breath. She has no other complaints or concerns. Focused Exam Lactate Level 11/03/19 21:00: Lactic Acid Level 3.62*H 11/03/19 23:05: Lactic Acid Level 2.40*H Objective Exam Vital Signs Vital Signs Date Time Temp Pulse Resp B/P (MAP) Pulse Ox O2 Delivery O2 Flow Rate FiO2 11/05/19 07:53 36.7 76 16 121/78 (92) 98 Room Air Capillary Refill : Less Than 3 Seconds General Appearance: No Apparent Distress, Obese Respiratory: Lungs Clear, Normal Breath Sounds, No Respiratory Distress Cardiovascular: Regular Rate, Rhythm, No Edema, No Murmur Gastrointestinal: Normal Bowel Sounds, Soft, Tenderness (right upper quadrant) Extremity: Normal Inspection, Non Tender, No Pedal Edema Neurologic/Psychiatric: Alert, Oriented x3, No Motor/Sensory Deficits, Normal Mood/Affect Skin: Normal Color, Warm/Dry Results/Procedures Lab Patient resulted labs reviewed. Imaging: Reviewed Imaging Report Assessment/Plan Assessment and Plan Assess & Plan/Chief Complaint Partial small bowel obstruction General Surgery primary CT abdomen revealed small bowel obstruction small bowel follow-through showed no complete small bowel obstruction diet advanced to dysphagia 3 decrease IV fluids Pain regimen and antiemetics ordered Hypertension Hyperlipidemia Rheumatoid arthritis Depression hypothyroidism restart home meds DVT prophylaxis: Lovenox Diagnosis/Problems Diagnosis/Problems (1) Small bowel obstruction Status: Acute Clinical Quality Measures DVT/VTE Risk/Contraindication: Risk Factor Score Per Nursin RFS Level Per Nursing on Admit: 4+=Very High SERJIO MOHAN MD November 05, 2019 09:23
[2019-11-05] MEDS ORDERED: ONDANSETRON 4 MG (ZOFRAN) ORAL DISSOLVE TAB PO PRN (09:30)
[2019-11-05] MEDS ORDERED: ACETAMINOPHEN 325 MG TABLET PO PRN (09:30)
[2019-11-05] MEDS ORDERED: MELATONIN 3 MG TABLET PO PRN (09:30)
[2019-11-05] MEDS ORDERED: ANTACID SUSP 30 ML UDC (MYLANTA) PO PRN (09:30)
[2019-11-05] MEDS ORDERED: ONDANSETRON 4 MG/2 ML (SDV) Z0FRAN IV PRN (09:30)
[2019-11-05] MEDS ORDERED: polyethylene glycoL POWDER 17 GM (MIRALAX) PACK PO PRN (09:30)
[2019-11-05] MEDS ORDERED: diphenhydrAMINE 25 MG TAB (BENADRYL) PO PRN (09:30)
[2019-11-05] MEDS ORDERED: PANTOPRAZOLE 40 MG (PROTONIX) TAB PO SCH (09:31)
[2019-11-05] MEDS ORDERED: CHLORTHALIDONE 25 MG (HYGROTON) TABLET PO SCH (09:32)
[2019-11-05] MEDS ORDERED: dilTIAZem120 MG (CARDIZEM CD) CAP PO SCH (09:33)
[2019-11-05] MEDS ORDERED: DULoxetine 20 MG (CYMBALTA) CAP PO SCH (09:34)
[2019-11-05] MEDS ORDERED: DOCUSATE SODIUM 100 MG (COLACE) CAP PO SCH (09:34)
[2019-11-05] MEDS ORDERED: lisINopril 20 MG (PRINIVIL) TABLET PO SCH (09:35)
[2019-11-05] MEDS ORDERED: LEVOTHYROXINE 150 MCG (LEVOTHROID) TAB PO SCH (09:37)
[2019-11-05] MEDS ORDERED: ETODOLAC 300 MG (LODINE) CAP PO SCH (10:00)
--- NOTE | 2019-11-05 10:12 | Progress Note ---
Subjective Date Seen by a Provider: November 05, 2019 Time Seen by a Provider: 09:30 Subjective/Events-last exam Patient seen with Dr. Beltran. Patient reports doing much better. Minimal abdominal tenderness. No N/V. No Fever/chills. Ambulating and tolerating diet. Having multiple BMs. Patient reports that she does feel ready to go home. Focused Exam Lactate Level 11/03/19 21:00: Lactic Acid Level 3.62*H 11/03/19 23:05: Lactic Acid Level 2.40*H Objective Exam Vital Signs Date Time Temp Pulse Resp B/P (MAP) Pulse Ox O2 Delivery O2 Flow Rate FiO2 11/05/19 07:53 36.7 76 16 121/78 (92) 98 Room Air 11/05/19 04:00 36.7 72 16 120/63 (82) 97 Room Air 11/05/19 00:00 36.8 86 14 132/71 (91) 97 Room Air 11/04/19 20:35 Room Air 11/04/19 19:12 36.5 72 15 123/59 (80) 97 Room Air 11/04/19 16:11 36.2 75 15 122/58 (79) 94 Room Air 11/04/19 12:00 36.4 79 18 120/76 (91) 100 Room Air I & O 11/05/19 07:00 Intake Total 0 ml Output Total 2 ml Balance -2 ml Capillary Refill : Less Than 3 Seconds General Appearance: No Apparent Distress, WD/WN Neck: Full Range of Motion, Normal Inspection, Supple Respiratory: Normal Breath Sounds, No Accessory Muscle Use, No Respiratory Distress Cardiovascular: Regular Rate, Rhythm, No Edema Gastrointestinal: normal bowel sounds, non tender, soft Extremity: Normal Capillary Refill, Normal Inspection, Normal Range of Motion Neurologic/Psychiatric: Alert, Oriented x3 Skin: Normal Color, Warm/Dry Assessment/Plan Assessment/Plan Assess & Plan/Chief Complaint A 69 year old female with small bowel obstruction with nausea vomiting. Nausea and vomiting resolved Abdominal pain resolved VSS and Labs WNL Tolerating diet and having BMs Ok to DC home Clinical Quality Measures DVT/VTE Risk/Contraindication: Risk Factor Score Per Nursin RFS Level Per Nursing on Admit: 4+=Very High JESSICA COKER SCRAP STRIPPER HAND November 05, 2019 10:12
--- NOTE | 2019-11-05 10:14 | Discharge Inst-Surgical ---
D/C Lap Instructions-KIDO Reconcile Patient Problems Problems Reviewed?: Yes New, Converted, or Re-Newed RX: Other Follow Up Appt in [address] Lovell Activity as tolerated No driving while on pain medications High Fiber Diet 25g or more per day Avoid Alcohol, Caffeine, Spicy Compo and Acid foods. Drink 64 fluid oz or more of fluids per day. Symptoms to Report: Fever over 101 degree F, Nausea/Vomiting If any problems/questions: Contact your physician or go to Emergency Room JESSICA COKER APRN November 05, 2019 10:14
[2019-11-05 10:32] VITALS: BP 121/78
[2019-11-05] MEDS ORDERED: meTOprolol SUCCINATE 100 MG (TOPROL XL) TAB PO SCH (21:00)
[2019-11-05] MEDS ORDERED: ASPIRIN E.C. 81 MG (ECOTRIN) TAB PO SCH (21:00)
[2019-11-06] MEDS ORDERED: LEVOTHYROXINE 75 MCG (LEVOTHROID) TABLET PO SCH (06:30)
[2019-11-06] MEDS ORDERED: FLUTICASONE NASAL SPRAY (FLONASE) 16 GM BTL NS SCH (09:00)
== END 2019-11-05 11:27 | disposition home or self-care (01) | DRG 390 ==
LOC: ER FS 20:46 → 4TH 22:45
PROVIDERS: ADMIT Surgery; ATTEND Surgery
DX: K56.600 Partial intestinal obstruction, unspecified as to cause (principal); F41.0 Panic disorder [episodic paroxysmal anxiety]; I10 Essential (primary) hypertension; E78.5 Hyperlipidemia, unspecified; M06.9 Rheumatoid arthritis, unspecified; E89.0 Postprocedural hypothyroidism; I25.10 Atherosclerotic heart disease of native coronary artery without angina pectoris; I25.2 Old myocardial infarction; E78.00 Pure hypercholesterolemia, unspecified; Z92.3 Personal history of irradiation; Z85.850 Personal history of malignant neoplasm of thyroid; Z98.1 Arthrodesis status; Z96.653 Presence of artificial knee joint, bilateral
CPT/HCPCS: 36415; 74022; 74177; 74250; 80053; 81000; 83605; 83690; 85007; 85025; 85027; 96361; 96374; 96375

== ENCOUNTER 2021-11-24 14:22 | Emergency (ER) | payer MEDICARE, OTHER ==
[~2021-11-24] VITALS: Ht 172 cm; Wt 92.0 kg
[~2021-11-24 14:22] MED LIST: ABAT250V IV; ASPI-1238 PO; ATOR80TA76 PO; CHLO25TA22 PO; DICL75TA2 PO; DILT-27 PO; DULO20CA19 PO; FLUT9.9S NS; FOLI1TAB6 PO; GLYCOPYRROLATE 1MG PO; LEVO150T PO; LISI20TA26 PO; MTP100TCR PO; NITR0.4T39 SL; PANT40TA52 PO; TRAM50TA3 PO
--- NOTE | 2021-11-24 14:49 | ED General ---
General Chief Complaint: Laceration Stated Complaint: LACERATION ON LEFT EYE/ FALL AT HOME Nursing Triage Note: PT TRIPPED OVER THE WATER HOSE SHE WAS WATERING GRAHAM. SHE FELL A COUPLE OFF WEEKS AGO AND HIT HER HEAD BUT NEVER GOT CHECKED OUT. REPORTS RIGHT HAND PAIN, LEFT KNEE (PT AMBULATED IN ER) AND SOME NAUSEA. SHE DENIES LOC. SHE HAS A PUNCTURE/LACERATION TO THE LEFT EYEBROW AREA WITH SWELLING NOTED. Source of Information: Patient Exam Limitations: No Limitations History of Present Illness Date Seen by Provider: Nov 24, 2021 Time Seen by Provider: 14:15 Initial Comments Patient is a 71-year-old female with history of rheumatoid arthritis who presents with accidental fall at home after tripping resulting in left orbital injury and right hand injury. Patient tripped over a garden hose and struck her head off of a cement porch. She denies loss of consciousness, headache but does have a contusion over left lateral orbital rim and nasal bridge. Patient also has right wrist and hand pain. She reports recent fall approximately 2 weeks ago with head injury in similar location. She reports dizziness and nausea but denies loss of consciousness. No neck pain no other acute symptoms or complaints. Timing/Duration: 1 Hour Severity: Mild Modifying Factors: improves with Other Associated Systoms: Other Allergies and Home Medications Allergies Coded Allergies: acetaminophen (Unverified Allergy, Unknown, 11/03/19) codeine (Verified Allergy, Unknown, 11/24/21) medroxyprogesterone (Verified Allergy, Unknown, 11/24/21) meperidine (Unverified Allergy, Unknown, 11/03/19) oxycodone (Unverified Allergy, Unknown, 11/03/19) warfarin (Verified Allergy, Unknown, 11/24/21) Patient Home Medication List Home Medication List Reviewed: Yes Abatacept/Maltose (Orencia 250 mg Vial) 250 Mg Vial, Unknown Dose IV MONTHLY, (Reported) Entered as Reported by: YUNG KEATING on 11/04/19 1122 Aspirin (Aspirin EC) 81 Mg Tablet.dr, 81 MG PO HS, (Reported) Entered as Reported by: YUNG KEATING on 11/04/19 1056 Atorvastatin Calcium (Atorvastatin Calcium) 80 Mg Tablet, 80 MG PO HS, (Reported) Entered as Reported by: YUNG KEATING on 11/04/19 1056 Chlorthalidone (Chlorthalidone) 25 Mg Tablet, 12.5 MG PO DAILY, (Reported) Entered as Reported by: YUNG KEATING on 11/04/19 105 Diclofenac Sodium (Diclofenac Sodium) 75 Mg Tablet.dr, 75 MG PO BID, (Reported) Entered as Reported by: YUNG KEATING on 11/04/19 105 Diltiazem HCl (Diltiazem 24Hr ER) 120 Mg Cap.er.24h, 120 MG PO DAILY, (Reported) Entered as Reported by: YUNG KEATING on 11/04/19 105 Duloxetine HCl (Duloxetine HCl) 20 Mg Capsule.dr, 20 MG PO DAILY, (Reported) Entered as Reported by: YUNG KEATING on 11/04/19 105 Fluticasone Propionate (Flonase Allergy Relief) 9.9 Ml [place].susp, 1 SPRAY NS DAILY, (Reported) Entered as Reported by: YUNG KEATING on 11/04/19 1100 Levothyroxine Sodium (Synthroid) 150 Mcg Tablet, 150 MG PO DAILY, (Reported) Entered as Reported by: YUNG KEATING on 11/04/19 105 Levothyroxine Sodium (Synthroid) 150 Mcg Tablet, 75 MCG PO THURSDAY, (Reported) Entered as Reported by: YUNG KEATING on 11/04/19 105 Lisinopril (Lisinopril) 20 Mg Tablet, 20 MG PO DAILY, (Reported) Entered as Reported by: YUNG KEATING on 11/04/19 105 Metoprolol Succinate (Metoprolol Succinate) 100 Mg Tab.er.24h, 100 MG PO HS, (Reported) Entered as Reported by: YUNG KEATING on 11/04/19 105 Multivitamin/Iron/Folic Acid (Centrum Complete Multivit Tab) 1 Each Tablet, 1 EACH PO DAILY, (Reported) Entered as Reported by: YUNG KEATING on 11/04/19 1058 Nitroglycerin (Nitroglycerin) 0.4 Mg Tab.subl, 0.4 MG SL UD PRN for CHEST PAIN, (Reported) Entered as Reported by: YUNG KEATING on 11/04/19 110 Pantoprazole Sodium (Pantoprazole Sodium) 40 Mg Tablet.dr, 40 MG PO DAILY, (Reported) Entered as Reported by: YUNG KEATING on 11/04/19 1056 Tramadol HCl (Tramadol HCl) 50 Mg Tablet, 50 MG PO Q8H PRN for PAIN-MODERATE (5- 7), (Reported) Entered as Reported by: YUNG KEATING on 11/04/19 1056 [Glycopyrrolate 1MG] 1 TAB, 1 MG PO DAILY, (Reported) Entered as Reported by: YUNG KEATING on 11/04/19 1056 Review of Systems Review of Systems Constitutional: see HPI EENTM: see HPI Respiratory: see HPI Cardiovascular: see HPI Gastrointestinal: see HPI Genitourinary: see HPI Musculoskeletal: see HPI Skin: see HPI Psychiatric/Neurological: See HPI Hematologic/Lymphatic: See HPI Immunological/Allergic: see HPI All Other Systems Reviewed Negative Unless Noted: Yes Past Sixfnzh-Jdrxoe-Natusl Hx Patient Social History Tobacco Use?: No Use of E-Cig and/or Vaping dev: No Substance use?: No Alcohol Use?: No Pt feels they are or have been: No Immunizations Up To Date First/Initial COVID19 Vaccinat: 2020 Second COVID19 Vaccination Zackery: 2020 COVID19 Vaccine Educational Technology Specialist: MODERNDamien Seasonal Allergies Seasonal Allergies: Yes Past Medical History Surgery/Hospitalization HX: KNEE SX BILATERAL SPINE FUSION APPENDIX HYSTERECTOMY CARPAL TUNNEL HTN HEART STINT 2017 [place] Surgeries: Yes (BILAT KNEE REPLACEMENT, RIGHT SHOULDER, BILAT CARPAL TUNNEL, THYROIDECTOMY,) Appendectomy, Hysterectomy, Orthopedic, Tonsillectomy, Tubal Ligation Respiratory: No Cardiac: Yes Coronary Artery Disease, Heart Attack, High Cholesterol, Hypertension Neurological: No Gastrointestinal: No Musculoskeletal: Yes (SPINAL FUSION) Rheumatoid Arthritis Endocrine: Yes Hypothyroidsim HEENT: No Cancer: Yes Thyroid Did You Recieve Any Treatments: Yes What Type of Treatment Did You: Radiation, Surgical Intervention Psychosocial: No Integumentary: No Blood Disorders: No Family Medical History Arthritis 19 FATHER 19 MOTHER Cataracts 19 FATHER 19 MOTHER Deafness or hearing loss 19 FATHER Diabetes mellitus Maternal Grandfather FH: bowel obstruction 19 MOTHER G8 SISTER FH: breast cancer Paternal Grandmother FH: macular degeneration Maternal Grandmother FH: ovarian cancer 19 MOTHER FH: stroke Paternal Grandmother FHx: heart disease 19 FATHER 19 MOTHER No Pertinent Family Hx Physical Exam Vital Signs Vital Signs - First Documented 11/24/21 14:25 Temp 35.9 Pulse 62 Resp 18 B/P (MAP) 131/57 (81) Pulse Ox 100 O2 Delivery Room Air Capillary Refill : Less Than 3 Seconds Height, Weight, BMI Height: '" Weight: lbs. oz. kg; 31.00 BMI Method: General Appearance: No Apparent Distress, WD/WN Eyes: Bilateral Eye PERRL, Bilateral Eye Other (Punctate laceration over lateral orbital rim, with superior orbital rim contusion, and contusion over superior nasal bridge. No nasal bridge deviation or epistaxis.) HEENT: PERRL/EOMI Neck: Full Range of Motion, Non Tender, Supple Cardiovascular: No Edema Extremity: Swelling (Tenderness and swelling over right lateral hand/wrist) Neurologic/Psychiatric: Alert, Oriented x3 Focused Exam Sepsis Stage: Ruled Out Progress/Results/Core Measures Suspected Sepsis SIRS Temperature: Pulse: 62 Respiratory Rate: 18 Blood Pressure 131 /57 Mean: 81 Results/Orders My Orders Orders - AHMET CARTWRIGHT DO Ct Head/Maxillofacial Wo (11/24/21 14:50) Wrist 3 View Right (11/24/21 14:50) Hand 3 View Right (11/24/21 14:50) Ondansetron Oral Solution (Zofran Oral S (11/24/21 15:00) Tramadol Tablet (Ultram Tablet) (11/24/21 15:00) Medications Given in ED Current Medications Medications Dose Ordered Sig/Anabel Route Start Time Stop Time Status Last Admin Dose Admin Ondansetron HCl 4 mg ONCE ONCE PO 11/24/21 15:00 11/24/21 15:01 DC 11/24/21 14:57 4 MG Tramadol HCl 100 mg ONCE ONCE PO 11/24/21 15:00 11/24/21 15:01 DC 11/24/21 14:58 100 MG Vital Signs/I&O 11/24/21 14:25 Temp 35.9 Pulse 62 Resp 18 B/P (MAP) 131/57 (81) Pulse Ox 100 O2 Delivery Room Air Capillary Refill : Less Than 3 Seconds Blood Pressure Mean: 81 Departure Communication (Admissions) CT facial/cervical spine: No acute fractures per radiology report Right hand/wrist: No acute findings on preliminary ER review. Patient with minor head injury without loss of consciousness or midline neck pain. Superficial punctate facial wound cleansed and closed with wound adhesive. Tetanus is up-to-date. Headache and nausea addressed. Typical closed head injury instructions provided. Return precautions reviewed. Patient verbalizes understanding agreement discharge instructions prior to departure. Laceration repair procedure note with wound adhesive left lateral orbital laceration cleansed with normal saline and wound cleanser and closed with wound adhesive with good edge approximation. Impression Primary Impression: Head injury Additional Impressions: Facial laceration Hand contusion Disposition: 01 HOME, SELF-CARE Condition: Stable Departure-Patient Inst. Decision time for Depature: 15:42 Referrals: ODETTE MELGOZA (PCP/Family) Primary Care Physician Patient Instructions: Concussion, Adult ED, Minor Contusion ED, Laceration Repair With Glue (DC) Add. Discharge Instructions: You were evaluated in the emergency department for fall from standing with head injury, facial laceration and right hand contusion. CT imaging and x-rays were performed and did not show acute brain injury or fracture. Please apply ice to affected areas and take home pain medication as needed. Follow the instructions in the handout and follow-up with your PCP for reevaluation of concussion in 3 to 5 days if symptoms persist. Return to the ED if new or worsening symptoms. All discharge instructions reviewed with patient and/or family. Voiced understanding. AHMET CARTWRIGHT DO Nov 24, 2021 14:49
[2021-11-24] MEDS ORDERED: ONDANSETRON 4 MG/5 ML ORAL SOLN (ZOFRAN) 5 ML PO ONE (15:00)
--- NOTE | 2021-11-24 15:25 | Diagnostic Imaging Report ---
EXAMINATION: Right wrist 3 or more views. REASON FOR EXAM: Fall. Right wrist pain and swelling. COMPARISON: None available. FINDINGS: There is no acute fracture or dislocation of the right wrist. Degenerative changes are seen in the right wrist with joint space loss, marginal osteophytes and subchondral sclerosis. No focal osseous lesions are seen. The surrounding soft tissues are unremarkable. IMPRESSION: 1. No acute fracture or dislocation in the right wrist. 2. 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 Dictated by: Dictated on workstation # [id number]
--- NOTE | 2021-11-24 15:26 | Diagnostic Imaging Report ---
EXAMINATION: CT head and face without contrast. TECHNIQUE: Multiple contiguous axial images were obtained through the face and brain without the use of intravenous contrast. All CT scans use one or more of the following dose optimizing techniques: automated exposure control, MA and/or KvP adjustment based on patient size and exam type or iterative reconstruction. HISTORY: Head injury, LOC COMPARISON: None available. FINDINGS: The ventricles and sulci are normal. No abnormal attenuation of brain parenchyma is present. No acute intracranial hemorrhage or abnormal extra-axial fluid collections are present. No hyperdense vessel. The calvarium is intact. The mastoid air cells are clear. The visualized paranasal sinuses are clear. The orbits are normal. No fracture is seen in the face. The nasal bones are normal. Mandible and maxillae are normal. Zygomatic arches are normal. Pterygoid plates are normal. No soft tissue abnormality is seen. IMPRESSION: 1. No acute intracranial abnormality. 2. No fracture in the face. Dictated by: Dictated on workstation # [id number]
--- NOTE | 2021-11-24 15:27 | Diagnostic Imaging Report ---
CLINICAL HISTORY: Fall. Right hand pain and swelling. COMPARISON: None. TECHNIQUE: 3 views of the right hand. FINDINGS: Acute fracture is seen involving the distal aspect of the right 2nd middle phalanx with extension into the right 2nd DIP joint. No other acute fractures are seen in the right hand. Degenerative changes are present in the right hand with joint space narrowing and marginal osteophyte formation. No focal osseous lesions are seen. Soft tissue edema is seen in the distal right 2nd digit. IMPRESSION: Acute fracture within the distal aspect of the right 2nd middle phalanx with extension into the right 2nd DIP joint. Dictated by: Dictated on workstation # [id number]
[2021-11-24 15:44] VITALS: BP 131/57
== END 2021-11-24 15:51 | disposition home or self-care (01) ==
LOC: EDUNIT# 14:22 → ER FS 14:25
DX: S05.42XA Penetrating wound of orbit with or without foreign body, left eye, initial encounter (principal); S09.90XA Unspecified injury of head, initial encounter; W22.8XXA Striking against or struck by other objects, initial encounter; Y92.096 Garden or yard of other non-institutional residence as the place of occurrence of the external cause
CPT/HCPCS: 12011; 70450; 70486; 73110; 73130

== ENCOUNTER → 2021-12-19 | Outpatient (CLI) | payer MEDICARE, OTHER | LOC: CARDFS 11:45 | PROVIDERS: ATTEND Nurse Practitioner | DX: I08.0 Rheumatic disorders of both mitral and aortic valves (principal) | CPT/HCPCS: 93306 ==